=== PATIENT | female | born 1975 | race Two or more races ===

== ENCOUNTER 2018-05-23 05:58 | Day surgery (SDC) | payer OTHER | END 2018-05-23 09:50 | disposition home or self-care (01) | LOC: CIR.AMB 05:58 | DX: N84.0 Polyp of corpus uteri (principal) ==

== ENCOUNTER 2020-05-07 08:45 | Inpatient (IN) | payer OTHER ==
[~2020-05-07] VITALS: Ht 156.2 cm; Wt 58.5 kg
== END 2020-05-15 10:46 | DRG 743 ==
LOC: O/R 05-14 06:07 → OB/GYN 05-14 06:07
PROVIDERS: ADMIT Obstetrics & Gynecology Gynecologic Oncology; ATTEND Obstetrics & Gynecology Gynecologic Oncology
PROC: 0UT14ZZ Resection of Left Ovary, Percutaneous Endoscopic Approach (ICD-10-PCS; 2020-05-14)
PROC: 0UT70ZZ Resection of Bilateral Fallopian Tubes, Open Approach (ICD-10-PCS; 2020-05-14)
PROC: 0UT94ZZ Resection of Uterus, Percutaneous Endoscopic Approach (ICD-10-PCS; principal; 2020-05-14 07:00)
DX: N84.0 Polyp of corpus uteri (principal); N72 Inflammatory disease of cervix uteri; N83.12 Corpus luteum cyst of left ovary; D26.1 Other benign neoplasm of corpus uteri